=== PATIENT | male | born 1970 | race Caucasian/White ===

== ENCOUNTER 2017-03-14 09:26 | Emergency (ER) | END 2017-03-14 12:29 | disposition left against medical advice (07) ==

== ENCOUNTER → 2018-04-02 | Emergency (ER) | payer MEDICAID ==
[~2018-04-02] VITALS: Ht 170.2 cm; Wt 90.4 kg
[~2018-04-02] MED LIST: AZIT250T PO; D-ME473S2 PO; IBUP-1542 PO
[2018-04-02 13:34] VITALS: BP 134/77; PULSE 80; RESP 17; Ht 170.2 cm; Wt 90.4 kg
--- NOTE | 2018-04-02 14:44 | ERD ---
ER Documentation Chief Complaint Chief Complaint N/V throat pain chest congestion x 4 days HPI 47-year-old male presents with productive cough for last 4 days. He said a couple episodes of posttussive vomiting, nonbilious nonbloody. Denies abdominal pain. May have had fevers at home but no fever triage. ROS All systems reviewed and are negative except as per history of present illness. Medications Home Meds Active Scripts Azithromycin* (Zithromax*) 250 Mg Tablet, 250 MG PO .ZPACK DIRECTED, #6 TAB TAKE 500 MG (2 TABS) THE FIRST DAY THEN 250 MG (1 TAB) DAYS 2-5 Prov:IVAN ADHIKARI MD 04/02/18 Ibuprofen* (Motrin*) 600 Mg Tab, 600 MG PO Q6, #15 TAB Prov:IVAN ADHIKARI MD 04/02/18 Dextromethorphan Hb-Promethazine Hcl* (Promethazine DM* Syrup) 473 Ml Syrup, 5 ML PO Q6 PRN for COUGH for 5 Days, ML Prov:IVAN ADHIKARI MD 04/02/18 Allergies Allergies: Coded Allergies: No Known Allergy (Unverified , 09/07/13) PMhx/Soc Medical and Surgical Hx: pt denies Medical Hx, pt denies Surgical Hx Hx Alcohol Use: No Hx Substance Use: No Hx Tobacco Use: No Smoking Status: Never smoker FmHx Family History: No diabetes, No coronary disease, No other Physical Exam Vitals Vital Signs Date Temp Pulse Resp B/P (MAP) Pulse Ox O2 O2 Flow FiO2 Time Delivery Rate 04/02/18 98.6 80 17 134/77 98 13:34 (96) Physical Exam Const: No acute distress Head: Atraumatic Eyes: Normal Conjunctiva ENT: Normal External Ears, Nose and Mouth. TMs and oropharynx normal. Neck: Full range of motion. No meningismus. Resp: Clear to auscultation bilaterally. Rhonchi without rales, wheezing or retractions. Cardio: Regular rate and rhythm, no murmurs Abd: Soft, non tender, non distended. Normal bowel sounds Skin: No petechiae or rashes Back: No midline or flank tenderness Ext: No cyanosis, or edema Neur: Awake and alert Psych: Normal Mood and Affect Procedures/MDM Patient presents with worsening productive cough for last 4 days. He has no evidence of hypoxemia, rest or distress. Given the duration will be treated empirically with Zithromax, promethazine, ibuprofen, primary care follow-up and return precautions although this may be viral illness as well. The patient was stable with no new complaints during the ER course. Clinically, there is no current evidence to suggest meningitis, sepsis, acute abdomen, pneumonia, stroke, acute coronary syndrome, pulmonary embolism, aortic dissection or any other emergent condition appearing to require further evaluation or hospitali zation. Patient counseled regarding my diagnostic impression and care plan. Prior to discharge all questions answered. Pt agrees with treatment plan and understands strict return precautions. Pt is instructed to follow up with primary care provider within 24-48 hours. Precautionary instructions provided including instructions to return to the ER if not improving or for any worsening or changing symptoms or concerns. EKG: Rate/Rhythm: Normal Sinus Rhythm. Rate equals 70 QRS, ST, T-waves: No changes consistent w/ acute ischemia Impression: No evidence of ischemia or arrhythmia. Impression-no acute findings of ischemia or arrhythmia. Borderline left ventricular hypertrophy. Nonspecific ST changes. Departure Diagnosis: Primary Impression: Upper respiratory infection URI type: unspecified URI Qualified Codes: J06.9 - Acute upper respiratory infection, unspecified Condition: Stable Patient Instructions: Bronchitis, Antiobiotic Treatment (Adult) Referrals: NO PRIMARY,CARE PHYSICIAN (PCP) Additional Instructions: Cheque otro vez con [place] doctor primario en el proximo dow or regresa para mas o nueva simptomas. IVAN ADHIKARI MD Apr 02, 2018 14:44
== END | disposition home or self-care (01) ==
LOC: FTE 13:31
DX: J06.9 Acute upper respiratory infection, unspecified (principal)
CPT/HCPCS: 93005; Z7502